=== PATIENT | male | born 1975 | race Hispanic/Latino ===

== ENCOUNTER 2017-01-03 22:00 | Emergency (ER) | payer OTHER ==
[~2017-01-03] VITALS: Ht 172.7 cm; Wt 72.6 kg
[~2017-01-03 22:00] MED LIST: AMOXICILLIN875 MG PO; AUGMENTIN875 MG PO; CLARITIN,ALAVAR10 MG PO; MOBIC7.5 MG PO; MOTRIN800 MG PO; PEN-VEE K,VEET500 MG PO; TESSALON PERLE100 MG PO; ULTRAM50 MG PO
[2017-01-04 00:29] VITALS: BP 140/78
[2017-01-04] MEDS ORDERED: FIORICET 50-301 EACH PO (00:30)
[2017-01-04] MEDS ORDERED: TORADOL10 MG PO (00:30)
== END 2017-01-04 01:06 | disposition home or self-care (01) ==
LOC: RME 22:00 → EME 22:00 → RME 01-04 01:06
DX: R51 Headache (principal); Z87.828 Personal history of other (healed) physical injury and trauma; F17.200 Nicotine dependence, unspecified, uncomplicated
CPT/HCPCS: 99281; 99284; J1885

== ENCOUNTER 2017-12-28 09:59 | Emergency (ER) | payer OTHER, MEDICARE ==
[~2017-12-28] VITALS: Ht 172.7 cm; Wt 73.7 kg
[~2017-12-28 09:59] MED LIST changes: +FIORICET 50-301 EACH PO; +TORADOL10 MG PO
[2017-12-28] MEDS ORDERED: KEFLEX500 MG PO (11:03)
[2017-12-28] MEDS ORDERED: PERCOCET 5/31 TABLET PO (11:03)
[2017-12-28] MEDS ORDERED: ULTRAM50 MG PO (11:08)
[2017-12-28 11:55] VITALS: BP 114/70
== END 2017-12-28 11:56 | disposition home or self-care (01) ==
LOC: EME 09:59
DX: S61.211A Laceration without foreign body of left index finger without damage to nail, initial encounter (principal); W26.8XXA Contact with other sharp object(s), not elsewhere classified, initial encounter; F17.200 Nicotine dependence, unspecified, uncomplicated
CPT/HCPCS: 73140; 99281; 99283; S0020

== ENCOUNTER 2017-12-28 15:14 | Emergency (ER) | payer OTHER, MEDICARE ==
[~2017-12-28] VITALS: Ht 172.7 cm; Wt 73.0 kg
[~2017-12-28 15:14] MED LIST changes: +KEFLEX500 MG PO; +PERCOCET 5/31 TABLET PO
[2017-12-28 16:14] VITALS: BP 104/63
== END 2017-12-28 16:14 | disposition home or self-care (01) ==
LOC: EME 15:14
DX: S68.121D Partial traumatic metacarpophalangeal amputation of left index finger, subsequent encounter (principal); F17.200 Nicotine dependence, unspecified, uncomplicated
CPT/HCPCS: 99281; 99282